=== PATIENT | female | born 1965 | race Caucasian/White ===

== ENCOUNTER 2017-04-15 15:03 | Emergency (ER) | payer MEDICAID, OTHER ==
[~2017-04-15] VITALS: Ht 149.9 cm; Wt 57.0 kg
[~2017-04-15 15:03] MED LIST: HYDR10TA16; LEXA20TA; LITH300; REST30CA; XANA2TAB2
[2017-04-15 15:05] VITALS: BP 127/65; PULSE 72; RESP 16; TEMP 97.7; O2SAT 98
--- NOTE | 2017-04-15 16:59 | PD ---
HPI Chief Complaint: Medical Clearance Time Seen by Provider: 16:51 Travel History International Travel<30 days: No Contact w/Intl Traveler<30days: No Traveled to known affect area: No History of Present Illness HPI 52-year-old female presents the emergency department with history of colostomy and abdominal pain. Patient is here specifically for medical clearance to go to [facility]. Patient states she needs colostomy supplies. She is also complaining of occasional right upper quadrant tenderness. She denies fever, chills, or nausea or vomiting. She denies urinary symptoms. She states she may be a little constipated with decreased output from her ostomy. She has no other complaints. Pain is minimal. She is allergic to penicillin. PFSH Past Medical History Asthma: No Bipolar Disorder: Yes Anxiety: Yes COPD: No ?: Not : 6 Para: 2 Miscarriage: 4 Past Surgical History Abdominal Surgery: Yes (2 C SECTIONS, TUBAL LIGATION) Hysterectomy: Yes Social History Alcohol Use: No Tobacco Use: Yes (1PPD X25 YEARS) Allergies-Medications (Allergen,Severity, Reaction): Coded Allergies: Penicillin (Verified Allergy, Mild, 04/15/17) Reported Meds & Prescriptions Reported Meds & Active Scripts Active Reported Ambien (Zolpidem Tartrate) 10 Mg Tab 10 Mg PO HS PRN Ativan (Lorazepam) 1 Mg Tab 1 Mg PO BID PRN Review of Systems Except as stated in HPI: all other systems reviewed are Neg General / Constitutional: No: Fever Eyes: No: Visual changes HENT: No: Headaches Cardiovascular: No: Chest Pain or Discomfort Respiratory: No: Shortness of Breath Gastrointestinal: No: Abdominal Pain Genitourinary: No: Dysuria Musculoskeletal: No: Pain Skin: No Rash Neurologic: No: Weakness Psychiatric: No: Depression Endocrine: No: Polydipsia Hematologic/Lymphatic: No: Easy Bruising Physical Exam Narrative GENERAL: Patient appears alert and oriented in no acute distress. SKIN: Warm and dry. Normal color. Normal turgor. There is a large central healed incision to the ventral abdomen, as well as colostomy in the left lower quadrant. Ostomy site appears normal. HEAD: Atraumatic. Normocephalic. EYES: Pupils equal and round. No scleral icterus. No injection or drainage. ENT: No nasal bleeding or discharge. Mucous membranes pink and moist. Pharynx is clear. Airway is patent. NECK: Trachea midline. Supple and nontender. CARDIOVASCULAR: Regular rate and rhythm. RESPIRATORY: No accessory muscle use. Clear to auscultation. Breath sounds equal bilaterally. GASTROINTESTINAL: Abdomen soft, non-tender, nondistended. Hepatic and splenic margins not palpable. No CVA tenderness. MUSCULOSKELETAL: Extremities without clubbing, cyanosis, or edema. No obvious deformities. NEUROLOGICAL: Awake and alert. No obvious cranial nerve deficits. Motor grossly within normal limits. Five out of 5 muscle strength in the arms and legs. Normal speech. PSYCHIATRIC: Appropriate mood and affect; insight and judgment normal. Data Data Last Documented VS Vital Signs Date Time Temp Pulse Resp B/P Pulse Ox O2 Delivery O2 Flow Rate FiO2 04/15/17 18:34 68 18 139/75 96 Room Air 04/15/17 15:05 97.7 Orders Complete Blood Count With Diff (04/15/17 17:03) Comprehensive Metabolic Panel (04/15/17 17:03) Urinalysis - C+S If Indicated (04/15/17 17:03) Abdomen, Flat & Upright (04/15/17 17:03) Colostomy Kit 2 1/4" Moldable (04/15/17 17:03) Labs Laboratory Tests Test 04/15/17 04/15/17 17:55 18:30 White Blood Count 8.0 TH/MM3 Red Blood Count 4.73 MIL/MM3 Hemoglobin 13.7 GM/DL Hematocrit 41.2 % Mean Corpuscular Volume 87.1 FL Mean Corpuscular Hemoglobin 28.9 PG Mean Corpuscular Hemoglobin 33.2 % Concent Red Cell Distribution Width 14.7 % Platelet Count 280 TH/MM3 Mean Platelet Volume 7.4 FL Neutrophils (%) (Auto) 44.1 % Lymphocytes (%) (Auto) 42.5 % Monocytes (%) (Auto) 7.5 % Eosinophils (%) (Auto) 5.1 % Basophils (%) (Auto) 0.8 % Neutrophils # (Auto) 3.5 TH/MM3 Lymphocytes # (Auto) 3.4 TH/MM3 Monocytes # (Auto) 0.6 TH/MM3 Eosinophils # (Auto) 0.4 TH/MM3 Basophils # (Auto) 0.1 TH/MM3 CBC Comment DIFF FINAL Differential Comment Sodium Level 137 MEQ/L Potassium Level 4.0 MEQ/L Chloride Level 103 MEQ/L Carbon Dioxide Level 27.5 MEQ/L Anion Gap 7 MEQ/L Blood Urea Nitrogen 12 MG/DL Creatinine 0.79 MG/DL Estimat Glomerular Filtration 77 ML/MIN Rate Random Glucose 61 MG/DL Calcium Level 8.8 MG/DL Total Bilirubin 0.1 MG/DL Aspartate Amino Transf 30 U/L (AST/SGOT) Alanine Aminotransferase 36 U/L (ALT/SGPT) Alkaline Phosphatase 66 U/L Total Protein 7.7 GM/DL Albumin 3.4 GM/DL Urine Color YELLOW Urine Turbidity HAZY Urine pH 5.5 Urine Specific [place]ledge 1.026 Urine Protein NEG mg/dL Urine Glucose (UA) NEG mg/dL Urine Ketones NEG mg/dL Urine Occult Blood NEG Urine Nitrite NEG Urine Bilirubin NEG Urine Urobilinogen LESS THAN 2.0 MG/DL Urine Leukocyte Esterase NEG Urine RBC 3 /hpf Urine WBC 2 /hpf Urine Squamous Epithelial 2 /hpf Cells Urine Bacteria RARE /hpf Urine Hyaline Casts 2 /lpf Urine Mucus FEW /lpf Microscopic Urinalysis Comment CULT NOT INDICATED MDM Medical Decision Making Medical Screen Exam Complete: Yes Emergency Medical Condition: Yes Differential Diagnosis Need for ostomy supplies. Medical clearance for [facility]. Abdominal pain. Narrative Course Patient appears in no acute distress. Labs ordered including CBC, CMP, urinalysis. KUB and upright are ordered of the abdomen. Ostomy supplies ordered from [facility]. KUB is unremarkable for acute process per radiologist. CBC, CMP, urinalysis are all within normal limits. Is medically cleared to go to [facility]. Diagnosis Primary Impression: Encounter for rehabilitation evaluation Additional Impression: Colostomy care Referrals: [facility] Patient Instructions: General Instructions Additional Instructions: Ostomy supplies ordered from [facility]. KUB is unremarkable for acute process per radiologist. CBC, CMP, urinalysis are all within normal limits. Is medically cleared to go to [facility]. Med/Other Pt SpecificInfo: No Meds Exist/No RX given Disposition: 01 DISCHARGE HOME Condition: Stable Terry Beltre Apr 15, 2017 16:59 Terry Beltre Apr 15, 2017 16:59
--- NOTE | 2017-04-15 17:42 | RADRPT ---
EXAM DATE/TIME: 04/15/2017 17:19 [place] COMPARISON: No previous studies available for comparison. INDICATIONS : Abdomen pain since last night. MEDICAL HISTORY : None. SURGICAL HISTORY : section. Appendectomy. Colostomy. tubal ligation. ENCOUNTER: Initial ACUITY: 1 day PAIN SCORE: 7/10 LOCATION: Right Abdomen FINDINGS: Supine and upright views of the abdomen were performed. The abdominal bowel gas pattern is normal. No air fluid levels are seen. No abnormal masses, calcifications, or organomegaly is seen. The visu alized lower lungs are clear. No evidence of free intraperitoneal gas. The osseous structures are u nremarkable. CONCLUSION: Negative for acute process. Reid Danielle MD FACR on April 15, 2017 at 17:40 Board Certified Radiologist. This report was verified electronically.
[2017-04-15] MEDS ORDERED: LORA-474 PO (17:44)
[2017-04-15] MEDS ORDERED: AMBI10TA PO (17:44)
[2017-04-15 18:29] LABS: AUTOMATED NEUTROPHIL # 3.5 TH/MM3 (1.8-7.7); BASOPHIL # 0.1 TH/MM3 (0-0.2); BASOPHIL % 0.8 % (0.0-2.0); EOSINOPHIL # 0.4 TH/MM3 (0-0.4); EOSINOPHIL % 5.1 % (0.0-4.0); HEMATOCRIT 41.2 % (35.0-46.0); HEMO FLAGS DIFF FINAL; LYMPH % 42.5 % (9.0-44.0); LYMPHOCYTE # 3.4 TH/MM3 (1.0-4.8); MEAN CELL VOLUME 87.1 FL (80.0-100.0); MEAN CORPUSCULAR HEMOGLOBIN 28.9 PG (27.0-34.0); MEAN CORPUSCULAR HGB CONC 33.2 % (32.0-36.0); MONO % 7.5 % (0.0-8.0); NEUT % 44.1 % (16.0-70.0); PLATELET COUNT 280 TH/MM3 (150-450); RED BLOOD COUNT 4.73 MIL/MM3 (4.00-5.30); RED CELL DISTRIBUTION WIDTH 14.7 % (11.6-17.2)
[2017-04-15 18:34] VITALS: BP 139/75; PULSE 68; RESP 18; O2SAT 96
[2017-04-15 18:34] LABS: ALT (GPT) 36 U/L (10-53); ANION GAP 7 MEQ/L (5-15); AST (GOT) 30 U/L (15-37); BICARBONATE 27.5 MEQ/L (21.0-32.0); BLOOD UREA NITROGEN 12 MG/DL (7-18); CHLORIDE 103 MEQ/L (98-107); GLOMERULAR FILTRATION RATE 77 ML/MIN (>89); SODIUM (NA) 137 MEQ/L (136-145)
[2017-04-15 18:36] LABS: ALKALINE PHOSPHATASE 66 U/L (45-117); TOTAL BILIRUBIN ADULT 0.1 MG/DL (0.2-1.0)
[2017-04-15 18:53] LABS: BACTERIA, URINE RARE /hpf; BLOOD, URINE NEG (NEG); COMMENT (UR) CULT NOT INDICATED; CULTURE IF INDICATED CULT NOT INDICATED; GLUCOSE,URINE NEG (NEG); HYALINE CAST, URINE 2 /lpf (RARE); KETONE, URINE NEG (NEG); MUCUS URINE FEW /lpf (OCC); NITRITE,URINE NEG (NEG); PH, URINE 5.5 (5.0-8.5); SQUAMOUS EPITHELIAL CELL URINE 2 /hpf (0-5); URINE COLOR YELLOW (YELLW/STRAW)
== END 2017-04-15 20:11 | disposition home or self-care (01) ==
LOC: NEPD 15:03
DX: R10.9 Unspecified abdominal pain (principal); F17.200 Nicotine dependence, unspecified, uncomplicated; Z93.3 Colostomy status
CPT/HCPCS: 74020; 80053; 81001; 85025; 99284